=== PATIENT | male | born 1960 | race Caucasian/White ===

== ENCOUNTER 2021-03-14 16:28 | Day surgery (SDCO) | payer OTHER ==
[2021-03-14 17:17] LABS: BASOPHIL 0.3 % (0-2); EOSINOPHIL 1.2 % (0-5); HCT 43.6 % (42.0-52.0); LYMPHOCYTE 30.7 % (15-48); MCHC 34.4 g/dL (32.0-36.0); MCV 87.2 fL (78.0-100.0); MONOCYTE 6.9 % (0-12); MPV 10.1 fL (6.0-9.5); NEUTROPHIL 60.8 % (41-80); NRBC 0; PLT 207 K/uL (150-400); RDW 12.7 % (11.5-14.0); WBC 7.2 K/uL (4.0-10.5)
[2021-03-14 17:28] LABS: INR 1.07 (0.9-1.2); PROTHROMBIN TIME 13.2 SECONDS (11.4-13.6); PTT 29.7 SECONDS (22.2-34.7)
[2021-03-14 17:46] LABS: ALBUMIN 3.8 g/dL (3.4-5.0); BILIRUBIN - TOTAL 0.4 mg/dL (0.2-1.0); BUN/CREAT RATIO (CALC) 8.5 RATIO; CKMB 0.9 ng/mL (0.0-3.6); CREATININE 1.65 mg/dL (0.67-1.17); GLOBULIN (CALCULATION) 3.5 g/dL; POTASSIUM 3.9 mmol/L (3.5-5.1); TOTAL PROTEIN 7.3 g/dL (6.4-8.2)
[2021-03-14] MEDS ORDERED: ASPIRIN81 MG PO (18:56)
[2021-03-15 06:14] LABS: BASOPHIL 0.3 % (0-2); EOSINOPHIL 1.8 % (0-5); HGB 12.9 g/dl (13.2-18.0); LYMPHOCYTE 36.1 % (15-48); MCH 30.1 pg (25.0-31.0); MCHC 33.9 g/dL (32.0-36.0); MCV 88.6 fL (78.0-100.0); MONOCYTE 8.9 % (0-12); MPV 10.3 fL (6.0-9.5); NEUTROPHIL 52.7 % (41-80); NRBC 0; PLT 169 K/uL (150-400); RBC 4.29 M/uL (4.70-6.00); WBC 6.1 K/uL (4.0-10.5)
[2021-03-15 06:37] LABS: BUN/CREAT RATIO (CALC) 12.8 RATIO; CREATININE 1.33 mg/dL (0.67-1.17); POTASSIUM 4.7 mmol/L (3.5-5.1)
--- NOTE | 2021-03-15 10:07 | NUR ---
03/15/21 Patient was transferred to [facility].
== END 2021-03-15 08:18 | disposition other institution (70) ==
LOC: FER 16:28 → FICU 18:04
PROVIDERS: Emergency Medicine; Nurse Practitioner; ADMIT Internal Medicine
DX: I21.4 Non-ST elevation (NSTEMI) myocardial infarction (principal); I25.110 Atherosclerotic heart disease of native coronary artery with unstable angina pectoris; I25.2 Old myocardial infarction; I45.10 Unspecified right bundle-branch block; N17.9 Acute kidney failure, unspecified; Z95.5 Presence of coronary angioplasty implant and graft; Z82.49 Family history of ischemic heart disease and other diseases of the circulatory system; Z87.891 Personal history of nicotine dependence; Z20.822 Contact with and (suspected) exposure to COVID-19
CPT/HCPCS: 36415; 71045; 80048; 80053; 80061; 82553; 84484; 85025; 85610; 85730; 93005; G0378; J1644; J1650; J7030; U0002